=== PATIENT | male | born 2000 | race African-American/Black ===

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

== ENCOUNTER 2018-09-01 10:54 | Emergency (ER) | payer OTHER ==
[~2018-09-01] VITALS: Ht 175.3 cm; Wt 65.9 kg
[2018-09-01 10:54] VITALS: BP 134/63
[~2018-09-01 10:54] MED LIST: BACT800T5 PO
[2018-09-01 11:25] LABS: APPEARANCE, URINE CLEAR (CLEAR); BACTERIA, URINE AUTO NEGATIVE (NEGATIVE); BILIRUBIN, URINE AUTO NEGATIVE (NEGATIVE); BLOOD, URINE BLOOD NEGATIVE (NEGATIVE); COLOR, URINE STRAW (YELLOW); GLUCOSE, URINE (UA) AUTO NEGATIVE (NEGATIVE); KETONE, URINE AUTO NEGATIVE (NEGATIVE); LEUKOCYTE ESTERASE, URINE AUTO NEGATIVE (NEGATIVE); MUCUS, URINE SMALL (NEGATIVE); NITRITE, URINE AUTO NEGATIVE (NEGATIVE); PROTEIN, URINE AUTO NEGATIVE (NEGATIVE); RBC, URINE AUTO 2 /HPF (0-3); SPECIFIC GRAVITY URINE AUTO 1.012 (1.002-1.035); SQUAMOUS EPITHELIAL CELL UR AU 0 /HPF (0-6); UROBILINOGEN, URINE AUTO 0.2 mg/dL (0.0-2.0); WBC, URINE AUTO 0 /HPF (0-3)
[2018-09-01] MEDS ORDERED: cefTRIAXone SOD 250 MG VIAL (J0696) IM ONE (11:30)
[2018-09-01] MEDS ORDERED: LIDOCAINE 1% SDV 5 ML VIAL DILUENT ONE (11:30)
[2018-09-01] MEDS ORDERED: AZITHROMYCIN 250 MG TAB PO ONE (11:30)
[2018-09-01 12:54] LABS: CHLAMYDIA DNA AMPLIFICATION NEGATIVE (NEGATIVE); GC DNA AMPLIFICATION NEGATIVE (NEGATIVE)
== END 2018-09-01 12:04 | disposition home or self-care (01) ==
LOC: M ED 10:54
DX: Z20.2 Contact with and (suspected) exposure to infections with a predominantly sexual mode of transmission (principal)
CPT/HCPCS: 81001; 87491; 87591; 96372; 99284; J0696

== ENCOUNTER 2018-11-11 23:36 | Emergency (ER) | payer OTHER ==
[~2018-11-11] VITALS: Ht 175.3 cm; Wt 65.9 kg
[2018-11-12 01:24] LABS: MONO SCRN NEGATIVE (NEGATIVE)
[2018-11-12] MEDS ORDERED: IBUP-1022 PO (01:40)
[2018-11-12] MEDS ORDERED: LIDO1SOL8 PO (01:40)
[2018-11-12 01:45] VITALS: BP 109/58
[2018-11-12] MEDS ORDERED: IBUPROFEN 600 MG TAB PO ONE (01:45)
[2018-11-12] MEDS ORDERED: LIDOCAINE VISCOUS 2% SOLN 15ML UDC SS ONE (01:45)
== END 2018-11-12 01:53 | disposition home or self-care (01) ==
LOC: M ED 23:36
DX: J02.9 Acute pharyngitis, unspecified (principal)

== ENCOUNTER 2020-01-23 00:29 | Emergency (ER) | payer OTHER ==
[~2020-01-23] VITALS: Ht 177.8 cm; Wt 71.0 kg
[~2020-01-23 00:29] MED LIST changes: +IBUP-1022 PO; +LIDO2SOL17 PO
[2020-01-23] MEDS ORDERED: ISOVUE-370 76% 100ML VIAL As Ordered ONE (04:26)
[2020-01-23] MEDS ORDERED: KETOROLAC 30 MG/ML 1ML VIAL IV ONE (04:30)
[2020-01-23 04:38] LABS: BASO # 0.1 10^3/uL (0.0-0.2); BASO % 0.8 % (0.0-1.0); EOS # 0.2 10^3/uL (0.0-0.5); HEMATOCRIT 42.2 % (42.0-52.0); HEMOGLOBIN 13.7 g/dl (13.5-17.5); LYMPH # 3.3 10^3/uL (1.5-5.0); LYMPH % 55.4 % (24.0-44.0); MEAN CORPUSCULAR HEMOGLOBIN 26.9 pg (27.0-33.0); MEAN CORPUSCULAR HGB CONC 32.5 g/dl (32.0-36.5); MEAN CORPUSCULAR VOLUME 82.9 fl (80.0-96.0); MONO # 0.6 10^3/uL (0.0-0.8); MONO % 10.4 % (0.0-5.0); NEUTROPHILS # 1.8 10^3/uL (1.5-8.5); NEUTROPHILS % 30.1 % (36.0-66.0); PLATELET COUNT, AUTOMATED 332 10^3/uL (150-450); RED BLOOD COUNT 5.09 10^6/uL (4.30-6.10)
--- NOTE | 2020-01-23 05:04 | REPVR ---
PROCEDURE INFORMATION: Exam: CT Abdomen And Pelvis With Contrast Exam date and time: 01/23/2020 4:18 AM Age: 19 years old Clinical indication: Abdominal pain; Flank; Other: Bilateral; Additional info: B/l flank pain, rads to lower quadrants TECHNIQUE: Imaging protocol: Computed tomography of the abdomen and pelvis with intravenous contrast. Radiation optimization: All CT scans at this facility use at least one of these dose optimization techniques: automated exposure control; mA and/or kV adjustment per patient size (includes targeted exams where dose is matched to clinical indication); or iterative reconstruction. Contrast material: ISO; Contrast volume: 100 ml; Contrast route: INTRAVENOUS (IV); COMPARISON: CT ABD PELVIS W/O CONTRAST 09/09/2017 10:05 AM FINDINGS: Liver: There is a small hepatic cyst in the superior right hepatic lobe measuring 6 mm. Gallbladder and bile ducts: The gallbladder is contracted with no stones. Pancreas: Normal. No ductal dilation. Spleen: Normal. No splenomegaly. Adrenals: Normal. No mass. Kidneys and ureters: No renal calculi are identified. Stomach and bowel: Unremarkable. No obstruction. No mucosal thickening. Appendix: There are no changes of appendicitis. A normal appendix is not seen. Intraperitoneal space: Unremarkable. No free air. No significant fluid collection. Vasculature: Unremarkable. No abdominal aortic aneurysm. Lymph nodes: Unremarkable. No enlarged lymph nodes. Urinary bladder: Unremarkable as visualized. Reproductive: Unremarkable as visualized. Bones/joints: Unremarkable. No acute fracture. Soft tissues: Unremarkable. IMPRESSION: Negative CT abdomen/pelvis with little change from 09/09/2017. No renal or ureteral calculi are evident and there is no evidence of obstructive uropathy. Electronically signed by: Sen Farias On 01/23/2020 05:04:21 AM
[2020-01-23 05:23] LABS: ALBUMIN 3.3 GM/DL (3.2-5.2); ALT/SGPT 33 U/L (12-78); BILIRUBIN,DIRECT < 0.1 MG/DL (0.0-0.2); BILIRUBIN,TOTAL 0.3 MG/DL (0.2-1.0); LIPASE 118 U/L (73-393); TOTAL PROTEIN 6.3 GM/DL (6.4-8.2)
[2020-01-23] MEDS ORDERED: LevoFLOXacin 500 MG TABLET PO ONE (05:45)
[2020-01-23 06:10] VITALS: BP 120/70
[2020-01-23] MEDS ORDERED: NAPR-837 PO (06:36)
== END 2020-01-23 06:47 | disposition home or self-care (01) ==
LOC: M ED 00:29
DX: S39.012A Strain of muscle, fascia and tendon of lower back, initial encounter (principal); X58.XXXA Exposure to other specified factors, initial encounter; Y92.9 Unspecified place or not applicable; Y93.9 Activity, unspecified
CPT/HCPCS: 74177; 80047; 80076; 81001; 83690; 85025; 96374; 99284; J1885; Q9967